=== PATIENT | male | born 1945 | race Caucasian/White ===

== ENCOUNTER 2024-10-30 13:43 | Emergency (ER) | payer MEDICARE, BC ==
[~2024-10-30] VITALS: Ht 188 cm; Wt 95.3 kg
[2024-10-30] MEDS ORDERED: LIDOCAINE 1%-EPI 1:100,000 20 ML VIAL ONE (14:10)
[2024-10-30] MEDS: LIDOCAINE 2%-EPI 1:100,000 30 ML VIAL TP ONE (14:11)
[2024-10-30 14:24] LABS: PLATELET COUNT (AUTO) 149 K/uL (150-450); RED BLOOD CELL COUNT(AUTO) 3.63 MIL/uL (4.5-6.0); RED CELL DISTRIBUTION WIDTH 15.1 % (11.5-15.0); WHITE BLOOD COUNT (AUTO) 5.3 K/uL (4.3-11.0)
[2024-10-30 14:42] LABS: ASPARTATE AMINOTRANSFERASE 25.0 U/L (15-37); CALCIUM, SERUM 8.5 mg/dL (8.5-10.1); CREATININE 0.9 mg/dL (0.6-1.3); SODIUM SERUM 137.0 mmol/L (136-145); TOTAL PROTEIN, SERUM 6.5 g/dL (6.4-8.2); UREA NITROGEN, BLOOD 30.0 mg/dL (7-18)
[2024-10-30 15:04] LABS: INR 1.03 (0.91-1.10)
[2024-10-30] MEDS ORDERED: TDAP [DIPH/PERTUSSIS/TET] 0.5 ML VIAL IM ONE (15:18)
[2024-10-30] MEDS: TDAP [DIPH/PERTUSSIS/TET] 0.5 ML VIAL IM ONE (15:23)
[2024-10-30] MEDS ORDERED: BACI28.43 TP (15:57)
[2024-10-30] MEDS ORDERED: AMOX-430 PO (15:57)
[2024-10-30] MEDS: BACITRACIN ZINC OINT PACKET 1 EA PACKET TP ONE (16:36)
[2024-10-30] MEDS ORDERED: BACITRACIN ZINC OINT PACKET 1 EA PACKET TP ONE (16:38)
[2024-10-30 17:06] VITALS: BP 160/88; TEMP 98; O2SAT 97
== END 2024-10-30 17:54 | disposition home or self-care (01) ==
LOC: ER 13:45
DX: S02.2XXB Fracture of nasal bones, initial encounter for open fracture (principal); E78.00 Pure hypercholesterolemia, unspecified; F32.A Depression, unspecified; I11.0 Hypertensive heart disease with heart failure; I50.9 Heart failure, unspecified; J34.2 Deviated nasal septum; R04.0 Epistaxis; Z79.82 Long term (current) use of aspirin; W01.0XXA Fall on same level from slipping, tripping and stumbling without subsequent striking against object, initial encounter; Y93.89 Activity, other specified; Y92.89 Other specified places as the place of occurrence of the external cause; Y99.8 Other external cause status
CPT/HCPCS: 12011; 36415; 70450; 70486; 72125; 80048; 80076; 85025; 85730; 90471; 90715; 99285; A6403; J3490